=== PATIENT | female | born 2000 | race African-American/Black ===

== ENCOUNTER 2021-04-13 14:43 | Inpatient (IN) ==
[2021-04-13 16:20] LABS: ABS Lymphocytes 2.1 10^3/ul (1.0-4.8); ABS Monocytes 0.3 10^3/ul (0-0.8); ABS Neutrophils 3.3 10^3/ul (1.5-7.7); Eosinophil % 0.5 %; Hematocrit 42 % (35-47); Hemoglobin 14.4 g/dL (12.0-16.0); Lymphocyte % 36.5 %; Mean Corpuscular HGB Conc 34 g/dL (31-36); Mean Corpuscular Hemoglobin 31 pg (27-31); Mean Corpuscular Volume 90 fL (80-97); Mean Platelet Volume 8.7 fL (7.4-10.4); Nucleated Red Blood Cells % 0.1; Platelet Count 278 10^3/uL (150-450); Red Blood Count 4.66 10^6 /uL (3.70-4.87); Red Cell Distribution Width 14 % (10-15); White Blood Count 5.8 10^3/uL (3.5-10.8)
[2021-04-13 16:35] LABS: ALT 10 U/L (7-52); Albumin 4.7 g/dL (3.2-5.2); Albumin/Globulin Ratio 1.3 (1-3); Alkaline Phosphatase 52 U/L (35-149); Blood Urea Nitrogen 8 mg/dL (6-24); CO2 Carbon Dioxide 25 mmol/L (22-32); Calcium 10.2 mg/dL (8.6-10.3); Chloride 105 mmol/L (101-111); Globulin 3.6 g/dL (2-4); Glucose 70 mg/dL (70-100); HCG Pregnancy < 0.60 mIU/mL; Sodium 138 mmol/L (135-145); Total Protein 8.3 g/dL (6.4-8.9)
[2021-04-13 16:43] LABS: AST 21 U/L (13-39); Anion Gap 8 mmol/L (2-11); Potassium 4.1 mmol/L (3.5-5.0)
[2021-04-13 18:37] LABS: TSH Ultra Thyroid Stim Horm 0.93 mcIU/mL (0.34-5.60)
[2021-04-13 18:38] LABS: Acetaminophen < 15 mcg/mL; Alcohol, S < 13 mg/dL (<13); Salicylate < 2.50 mg/dL (<30)
[2021-04-13] MEDS ORDERED: Norethindrone/Eth Est 1.5/30NF TAB PO SCH (20:00)
[2021-04-14] MEDS ORDERED: Al Hydrox/Mg Hydrox/Simet LIQ 30 ML UDC PO PRN (01:37)
[2021-04-14] MEDS ORDERED: [UNRECOGNIZED DRUG - REMARK] PO (01:37)
[2021-04-14 01:43] LABS: Rapid COVID-19 Molecular Undetected (Undetected)
[2021-04-14] MEDS: Vitamin THERAPEUTIC TAB PO SCH (10:28)
[2021-04-14] MEDS ORDERED: NORETHINDRONE E ESTRADIOL IRON PO SCH (20:00)
[2021-04-15] MEDS ORDERED: NORETHINDRONE E ESTRADIOL IRON PO SCH (09:00)
[2021-04-15] MEDS: Vitamin THERAPEUTIC TAB PO SCH (09:42)
[2021-04-15] MEDS: NORETHINDRONE E ESTRADIOL IRON PO SCH (21:12)
[2021-04-16] MEDS: Vitamin THERAPEUTIC TAB PO SCH (08:45)
[2021-04-16] MEDS: NORETHINDRONE E ESTRADIOL IRON PO SCH (20:39)
[2021-04-16 21:14] VITALS: BP 125/87
[2021-04-17] MEDS: Vitamin THERAPEUTIC TAB PO SCH (09:34)
[2021-04-19 16:39] LABS: Hb A 55.8 % (95.8-98.0); Hb A2 3.6 % (2.0-3.3); Hb F 0.3 % (0.0-0.9); Variant 1 40.3 Hb S % (0.0)
[2021-04-20 11:08] LABS: Sickle Solubility, B Positive
== END 2021-04-17 13:08 | disposition home or self-care (01) | DRG 885 ==
LOC: ED 14:43 → BSU 04-14 00:12
PROVIDERS: ADMIT Psychiatry & Neurology Psychiatry; ATTEND Psychiatry & Neurology Psychiatry

== ENCOUNTER 2023-08-03 19:30 | Inpatient (IN) ==
[2023-08-03] MEDS: NS 0.9% 1000 ml BAG 1,000 ML IV ONE (20:36)
[2023-08-03 20:45] LABS: ABS Eosinophils 0.1 10^3/uL (0.0-0.5); ABS Lymphocytes 2.2 10^3/uL (1.0-4.8); ABS Monocytes 0.4 10^3/uL (0.0-0.9); ABS Neutrophils 3.4 10^3/uL (1.5-7.6); ABS Nucleated RBC 0.01 10^3/ul; Eosinophil % 1.3 %; Hematocrit 39.2 % (35-45); Hemoglobin 13.2 g/dL (11.5-14.3); Lymphocyte % 35.7 %; Mean Corpuscular Hemoglobin 30.3 pg (27-33); Mean Corpuscular Hgb Conc 33.8 g/dL (31-36); Mean Corpuscular Volume 89.8 fL (80-97); Nucleated Red Blood Cells % 0.1 %/100WBC (0.0-0.8); Platelet Count 270 10^3/uL (150-450); Red Blood Count 4.36 10^6/uL (3.63-4.92); Red Cell Distribution Width 13.2 % (12-17); White Blood Count 6.1 10^3/uL (3.8-11.8)
[2023-08-03 20:53] LABS: ALT 13 U/L (7-52); AST 25 U/L (13-39); Albumin 4.4 g/dL (3.2-5.2); Albumin/Globulin Ratio 1.5 (1-3); Alkaline Phosphatase 81 U/L (35-149); Anion Gap 4 mmol/L (2-16); Blood Urea Nitrogen 13 mg/dL (6-24); CO2 Carbon Dioxide 30 mmol/L (22-32); Calcium 9.9 mg/dL (8.6-10.3); Chloride 102 mmol/L (101-111); Creatinine, Serum 0.85 mg/dL (0.51-0.95); Glucose 76 mg/dL (70-100); Potassium 3.6 mmol/L (3.5-5.0); Sodium 136 mmol/L (135-145); Total Bilirubin 0.4 mg/dL (0.2-1.0); Total Protein 7.4 g/dL (6.4-8.9); eGFR CKD-EPI 99.9 (>60)
[2023-08-03 21:00] LABS: HCG Pregnancy < 0.60 mIU/mL
[2023-08-03 21:10] LABS: Acetaminophen < 15 mcg/mL; Alcohol, S < 13 mg/dL (<13); Salicylate < 2.50 mg/dL (<30)
[2023-08-04 01:47] LABS: Urine Benzodiazepine Screen None Detected (None Detect); Urine Cannabinoids Screen None Detected (None Detect); Urine Opiates Screen None Detected (None Detect)
[2023-08-04 02:03] LABS: Urine Appearance Clear; Urine Bilirubin Negative (Negative); Urine Blood Negative (Negative); Urine Color Light-Yellow; Urine Glucose Negative (Negative); Urine Ketones Negative (Negative); Urine Nitrite 2+ (Negative); Urine Protein Negative (Negative); Urine Specific Gravity 1.015 (1.002-1.030); Urine Urobilinogen Negative (Negative); Urine pH 5.5 (5.0-8.0)
[2023-08-04 02:06] LABS: Urine Bacteria 1+ /HPF (Absent); Urine Red Blood Cell Trace(0-2/hpf) /HPF (0-Trace); Urine Squamous Epithelial Cell Present /HPF (Absent); Urine Transitional Epithelial Present /HPF (Absent); Urine White Blood Cell 1+(6-10/hpf) /HPF (0-Trace)
[2023-08-04] MEDS ORDERED: Al Hydrox/Mg Hydrox/Simet LIQ 30 ML UDC PO PRN ×2 (06:13→06:19)
[2023-08-04] MEDS ORDERED: Vitamin THERAPEUTIC TAB PO SCH (09:00)
[2023-08-04] MEDS: Vitamin THERAPEUTIC TAB PO SCH (12:28)
[2023-08-04] MEDS: DULoxetine DR 60 mg CAP PO SCH (12:28)
[2023-08-05 10:52] VITALS: BP 124/88
== END 2023-08-05 16:17 | disposition home or self-care (01) | DRG 918 ==
LOC: ED 19:30 → EDHOLD 08-04 05:50 → BSU 08-04 08:15
PROVIDERS: ADMIT Psychiatry & Neurology Psychiatry; ATTEND Psychiatry & Neurology Psychiatry